=== PATIENT | female | born 1990 | race Two or more races ===

== ENCOUNTER 2022-11-02 16:39 | Emergency (ER) | payer MEDICAID, OTHER ==
[~2022-11-02] VITALS: Ht 167.6 cm; Wt 71.7 kg
[2022-11-02 17:27] VITALS: BP 110/62; PULSE 74; RESP 16; TEMP 97.8; O2SAT 96
[2022-11-02] MEDS ORDERED: KETOROLAC TROMETH 60MG/2ML VIAL IM ONE (17:45)
[2022-11-02] MEDS ORDERED: cefTRIAXone SOD 1,000 MG VL IM ONE (17:45)
[2022-11-02] MEDS ORDERED: IBUP-1456 PO (18:02)
[2022-11-02] MEDS ORDERED: AUG875T PO (18:02)
== END 2022-11-02 18:08 | disposition home or self-care (01) ==
LOC: ER 16:39
DX: K04.7 Periapical abscess without sinus (principal); H66.91 Otitis media, unspecified, right ear
CPT/HCPCS: 96372; 99284; J0696; J1885

== ENCOUNTER 2023-08-24 11:46 | Emergency (ER) | payer MEDICAID ==
[~2023-08-24] VITALS: Ht 167.6 cm; Wt 71.9 kg
[~2023-08-24 11:46] MED LIST: AUG875T PO; IBUP-1456 PO
[2023-08-24] MEDS: SODIUM CHLORIDE 0.9% 500 ML IV ONE (12:45)
[2023-08-24 12:47] VITALS: PULSE 71; RESP 18; O2SAT 97
[2023-08-24 12:48] LABS: Basophils # (auto) 0.1 10 ^3/uL (0-0.2); Basophils % (auto) 1.2 % (0.0-2.0); Eosinophils # (auto) 0.3 10 ^3/uL (0-0.8); Eosinophils % (auto) 4.3 % (0.0-7.0); Hemoglobin 14.5 g/dL (12.2-16.2); Lymphocytes # (auto) 2.1 10 ^3/uL (0.4-5.4); Lymphocytes % (auto) 32.8 % (10.0-50.0); Mean Corpuscular Hemoglobin 30.4 pg (28.0-32.0); Mean Corpuscular Hgb Conc. 34.5 g/dL (32.0-36.0); Mean Corpuscular Volume 88.2 fL (80.0-100.0); Monocytes # (auto) 0.5 10 ^3/uL (0-1.3); Neutrophils # (auto) 3.4 10 ^3/uL (1.6-8.6); Neutrophils % (auto) 53.7 % (37.0-80.0); Nucleated Red Blood Cells % 0.1 %; Red Blood Cells 4.76 10^6/uL (4.0-5.20); Red Cell Distribution Width 13.4 % (11.8-14.3); White Blood Cell 6.3 10^3/uL (4.4-10.8)
[2023-08-24 12:51] LABS: Urine Bacteria FEW /hpf (None Seen); Urine Blood Negative /uL (Negative); Urine Clarity Clear (Clear); Urine Color Colorless (Yellow); Urine Protein, UAD Negative (Negative); Urine Specific Gravity 1.004 (1.001-1.035); Urine Urobilinogen Normal (Negative); Urine WBC <1 /hpf (0 - 5); Urine pH 7.5 (5.0-9.0)
[2023-08-24 13:10] LABS: Alanine Aminotransferase 89 U/L (7-40); Albumin 4.4 g/dL (3.2-4.8); Alkaline Phosphatase 94 U/L (46-116); Anion Gap 3 (5-15); Aspartate Aminotransferase 45 U/L (13-40); BUN/Creatinine Ratio 14.5 (10.0-20.0); Blood Urea Nitrogen 10 mg/dL (9-23); Calcium 9.6 mg/dL (8.7-10.4); Carbon Dioxide 30 mmol/L (20-30); Chloride 105 mmol/L (98-107); Glucose 96 mg/dL (74-106); Sodium 138 mmol/L (136-145)
[2023-08-24 13:11] LABS: Bilirubin, Total 0.3 mg/dL (0.2-1.0); Total Protein 7.7 g/dL (5.7-8.2)
[2023-08-24] MEDS ORDERED: MECL25CH85 PO (14:58)
[2023-08-24 15:17] VITALS: BP 113/71; PULSE 65; RESP 19; TEMP 98.3; O2SAT 98
== END 2023-08-24 15:19 | disposition home or self-care (01) ==
LOC: ER 11:46
DX: R42 Dizziness and giddiness (principal); R10.2 Pelvic and perineal pain; E78.5 Hyperlipidemia, unspecified; Z79.899 Other long term (current) drug therapy
CPT/HCPCS: 36415; 80053; 81001; 82962; 83735; 84702; 85025; 96360; 99283; J7040